=== PATIENT | female | born 1985 | race Two or more races ===

== ENCOUNTER → 2022-03-24 | Outpatient (CLI) | payer BC | END | disposition home or self-care (01) | LOC: LABWHC1 09:18 | DX: T78.40XA Allergy, unspecified, initial encounter (principal) | CPT/HCPCS: 36415 ==

== ENCOUNTER → 2022-06-25 | Outpatient (CLI) | payer BC ==
[2022-06-25 14:55] LABS: Basophils # (A) 0.04 X 10*3/uL (0.00-0.10); Basophils % (A) 0.6 %; Eosinophils # (A) 0.15 X 10*3/uL (0.04-0.35); Eosinophils % (A) 2.1 %; HCT 44.1 % (37.2-46.3); HGB 14.4 g/dL (12.0-15.0); Immature Grans, Automated 0.4 %; Lymphocytes # (A) 1.46 X 10*3/uL (0.90-5.00); Lymphocytes % (A) 20.1 %; MCH 29.6 pg (27.0-32.0); MCHC 32.7 g/dL (32.0-37.0); MCV 90.6 fL (80.0-97.0); Mean Platelet Volume 9.5 fL (9.5-12.2); Monocytes % (A) 8.3 %; NRBC Per 100 WBC 0 /100 WBCS (0.0-0.0); Neutrophils # (A) 4.99 X 10*3/uL (1.80-7.70); Neutrophils % (A) 68.5 %; Platelet Count 277 X 10*3/uL (140-440); RBC 4.87 X 10*6/uL (4.10-5.20); RDW 11.9 % (11.5-14.5); WBC 7.27 X 10*3/uL (4.50-10.00)
[2022-06-25 15:58] LABS: ALT 13 U/L (8-44); AST 12 U/L (13-35); HCG,Quantitative Serum <3.0 (0.0-6.0)
== END | disposition home or self-care (01) ==
LOC: LABWHC1 08:10
PROVIDERS: ATTEND Dermatology
DX: L70.0 Acne vulgaris (principal)
CPT/HCPCS: 36415; 82465; 84450; 84460; 84478; 84702; 85025

== ENCOUNTER → 2022-09-01 | Outpatient (CLI) | payer BC ==
[2022-09-02 11:15] LABS: APTT 42 Sec(s) (<43); Dilute Russell Viper Venom 37 Sec(s) (<44)
[2022-09-02 11:16] LABS: Anti-Thrombin III Antigen 87 % (80 - 120); Protein S Antigen 83 % (50 - 140)
== END | disposition home or self-care (01) ==
LOC: LABWHC1 08:06
DX: D68.2 Hereditary deficiency of other clotting factors (principal)
CPT/HCPCS: 36415; 81241; 83090; 85301; 85302; 85305; 85613; 85730

== ENCOUNTER → 2023-10-14 | Outpatient (CLI) | payer BC ==
--- NOTE | 2023-10-17 15:25 | MM ---
Reason for Exam: Screening (asymptomatic). Patient History: Menarche at age 11. First Full-Term at age 27. Mother had breast cancer, age 38. Risk Values: Jacklyn 5 year model risk: 1.0%. NCI Lifetime model risk: 18.9%. Staff Notes: BASELINE STUDY. Tissue Density: The breasts are heterogeneously dense, which may obscure small masses. Findings: Analyzed By CAD. Right breast: There is no suspicious group of microcalcifications or new suspicious mass. Left breast: There is no suspicious group of microcalcifications or new suspicious mass. Overall Assessment: Negative, BI-RAD 1 Management: Screening Mammogram of both breasts in [address] [facility] will attempt to contact patient to return for supplemental views and ultrasound if indicated. Patient should continue monthly self-breast exams. A clinical breast exam by your physician is recommended on an annual basis. This exam should not preclude additional follow-up of suspicious palpable abnormalities. Note on Jacklyn scores and lifetime risk: 1. A Jacklyn score greater than 3% is considered moderate risk. If this is the case, consider specialist referral to assess eligibility for a risk reducing agent. 2. If overall lifetime risk for the development of breast cancer is 20% or higher, the patient may qualify for future screening with alternating mammogram and breast MRI. Electronically signed and approved by: Sarath Sanchez DO
== END | disposition home or self-care (01) ==
LOC: RADMAMWWP 12:49
PROVIDERS: ATTEND Family Medicine
DX: Z12.31 Encounter for screening mammogram for malignant neoplasm of breast (principal); Z80.3 Family history of malignant neoplasm of breast
CPT/HCPCS: 77063; 77067

== ENCOUNTER → 2023-10-20 | Outpatient (CLI) | payer BC ==
[2023-10-20 14:22] LABS: Basophils # (A) 0.04 X 10*3/uL (0.00-0.10); Basophils % (A) 0.8 %; Eosinophils # (A) 0.09 X 10*3/uL (0.04-0.35); Eosinophils % (A) 1.8 %; HCT 41.3 % (37.2-46.3); HGB 13.3 g/dL (12.0-15.0); Lymphocytes # (A) 1.29 X 10*3/uL (0.90-5.00); Lymphocytes % (A) 25.4 %; MCH 27.6 pg (27.0-32.0); MCHC 32.2 g/dL (32.0-37.0); MCV 85.7 FL (80.0-97.0); Mean Platelet Volume 9.6 FL (9.5-12.2); Monocytes # (A) 0.39 X 10*3/uL (0.20-1.00); Monocytes % (A) 7.7 %; NRBC Per 100 WBC 0 X 10*3/uL (0.00-0.01); Neutrophils # (A) 3.26 X 10*3/uL (1.80-7.70); Neutrophils % (A) 64.1 %; Platelet Count 276 X 10*3/uL (140-440); RBC 4.82 X 10*6/uL (4.10-5.20); RDW 13.5 % (11.5-14.5); WBC 5.08 X 10*3/uL (4.50-10.00)
[2023-10-20 15:06] LABS: ALT 9 U/L (8-44); AST 18 U/L (13-35); Albumin 4.6 g/dL (3.8-4.9); Albumin/Globulin Ratio 1.77 Ratio (1.60-3.17); Alkaline Phosphatase 71 U/L (41-126); Blood Urea Nitrogen 11.7 mg/dL (9.0-27.0); Calcium 10.2 mg/dL (8.7-10.3); Carbon Dioxide 26.4 mmol/L (21.6-31.8); Chloride 102 mmol/L (96-109); Estradiol 47.6 pg/mL; Globulin 2.6 g/dL (1.6-3.3); Glucose 66 mg/dL (70-110); Potassium 4.6 mmol/L (3.5-5.5); Sodium 139 mmol/L (135-145); T4, Free (Free Thyroxine) 1.14 ng/dL (0.80-1.80); Total Bilirubin 0.3 mg/dL (0.3-1.2); Total Protein 7.2 g/dL (6.2-8.2)
[2023-10-20 16:05] LABS: Follicle Stimulating Hormone 7.6 mIU/mL; Luteinizing Hormone 6.1 mIU/mL
== END | disposition home or self-care (01) ==
LOC: LABWHC1 08:12
PROVIDERS: ATTEND Family Medicine
DX: F90.0 Attention-deficit hyperactivity disorder, predominantly inattentive type (principal); E06.3 Autoimmune thyroiditis; F33.1 Major depressive disorder, recurrent, moderate
CPT/HCPCS: 36415; 80053; 82670; 83001; 83002; 84439; 84443; 85025

== ENCOUNTER 2024-10-11 17:06 | Emergency (ER) | payer BC ==
--- NOTE | 2024-10-11 17:47 | ED ---
General Adult HPI - General Chief complaint: Headache Stated complaint: Headache Time Seen by Provider: 10/11/24 17:18 Source: patient Mode of arrival: ambulatory Limitations: no limitations - History of Present Illness Initial comments: Dictation was produced using [employer] dictation software. please excuse any grammatical, word or spelling errors. Chief Complaint: 39-year-old female with headache History of Present Illness: Patient is a 39-year-old female she does not have reported history of headaches. States she has family history of aneurysms. Around 2:30 PM today she started having a headache. States that she is sensitive to light and is throbbing in nature. Denies any significant comorbidities. Denies extremity issues. States that the headache is holoacranial. The ROS documented in this emergency department record has been reviewed and confirmed by me. Those systems with pertinent positive or negative responses have been documented in the HPI. All other systems are other negative and/or noncontributory. - Related Data Allergies Allergy/AdvReac Type Severity Reaction Status Date / Time No Known Allergies Allergy Verified 10/11/24 17:14 Review of Systems ROS Statement: Those systems with pertinent positive or pertinent negative responses have been documented in the HPI. ROS Other: All systems not noted in ROS Statement are negative. Past Medical History Additional Past Medical History / Comment(s): hashimotos History of Any Multi-Drug Resistant Organisms: None Reported Past Surgical History: No Surgical Hx Reported Past Psychological History: No Psychological Hx Reported Smoking Status: Never smoker Past Alcohol Use History: None Reported Past Drug Use History: None Reported General Exam - General Exam Comments Initial Comments: PHYSICAL EXAM: General Impression: Alert and oriented x3, acute distress the pain HEENT: Normocephalic atraumatic, extra-ocular movements intact, pupils equal and reactive to light bilaterally, mucous membranes moist. Cardiovascular: Heart regular rate and rhythm Chest: Able to complete full sentences, no retractions, no tachypnea Abdomen: abdomen soft, non-tender, non-distended, no organomegaly Musculoskeletal: Pulses present and equal in all extremities, no peripheral edema Motor: no focal deficits noted Neurological: CN II-XII grossly intact, no focal motor or sensory deficits noted Skin: Intact with no visualized rashes Psych: Normal affect and mood Limitations: no limitations Course Vital Signs 10/11/24 10/11/24 17:11 18:37 Temperature 97.8 F 97.7 F Pulse Rate 85 82 Respiratory 16 17 Rate Blood Pressure 119/81 125/83 O2 Sat by Pulse 100 100 Oximetry Medical Decision Making - Medical Decision Making Was pt. sent in by a medical professional or institution ([facility], CRATE BUILDER, urgent care, hospital, or intermediate...) When possible be specific @ -No Did you speak to anyone other than the patient for history (EMS, parent, family, police, friend...)? What history was obtained from this source @ -No Did you review nursing and triage notes (agree or disagree)? Why? @ -I reviewed and agree with nursing and triage notes Were old charts reviewed (outside hosp., previous admission, EMS record, old EKG, old radiological studies, urgent care reports/EKG's, intermediate records)? Report findings @ -No old charts were reviewed Differential Diagnosis (chest pain, altered mental status, abdominal pain women, abdominal pain men, vaginal bleeding, musculoskeletal, weakness, fever, dyspnea, syncope, headache, dizziness, GI bleed, back pain, seizure, CVA, palpatations, mental health)? @ -Differential Headache: Migraine, tension, cluster, carbon monoxide, central venous thrombosis, pension karma temporal arteritis, acute closure glaucoma, intercranial hemorrhage, mastoiditis, sinusitis, head injury, this is not meant to be an all-inclusive list. EKG interpreted by me (3pts min.). @ -None done X-rays interpreted by me (1pt min.). @ -None done CT interpreted by me (1pt min.). @ -CT brain and CT angiography head and neck shows no acute processes U/S interpreted by me (1pt. min.). @ -None done What testing was considered but not performed or refused? (CT, X-rays, U/S, labs)? Why? @ -None What meds were considered but not given or refused? Why? @ -None Was smoking cessation discussed for >3mins.? @ -No Were there social determinants of health that impacted care today? How? (Homelessness, low income, unemployed, alcoholism, drug addiction, transportation, low edu. Level, literacy, decrease access to med. care, long-term, rehab)? @ -No Was there de-escalation of care discussed even if they declined (Discuss DNR or withdrawal of care, Hospice)? DNR status @ -No What co-morbidities impacted this encounter? (DM, HTN, Smoking, COPD, CAD, Cancer, CVA, ARF, Chemo, Hep., AIDS, mental health diagnosis, sleep apnea, morbid obesity)? @ -Family history of brain aneurysms Was patient admitted / discharged? Hospital course, mention meds given and route, prescriptions, significant lab abnormalities, going to OR and other pertinent info. @ -39-year-old female presents to the emergency department with headache. She states that her symptoms did feel a thunderclap and that it is a severe headache. Vital signs stable. Patient in distress at the bedside. She has family history of intracranial aneurysms. CT imaging is negative. Patient presents within 6 hours of the onset of symptoms. No aneurysm seen on CTA. Patient given headache cocktail with improvement of symptoms. Patient reevaluated bedside found to be stable to condition. Patient discharged advised follow-up with primary care doctor. Clinical presentation consistent with migraine Did you discuss the management of the patient with other professionals (professionals i.e. , PA, CRATE BUILDER, lab, RT, psych nurse, psychiatric social worker, proofer apprentice, te acher, court collections officer, case hardener)? Give summary @ -No Was critical care preformed (if so, how long)? @ -No Undiagnosed new problem with uncertain prognosis? @ -No Drug Therapy requiring intensive monitoring for toxicity (Heparin, Nitro, Insulin, Cardizem)? @ -No Were any procedures done? @ -No Diagnosis/symptom? Acute, or Chronic, or Acute on Chronic? Uncomplicated (without systemic symptoms) or Complicated (systemic symptoms)? @ -Headache Side effects of treatment? @ -No Exacerbation, Progression, or Severe Exacerbation? @ -No Poses a threat to life or bodily function? How? (Chest pain, USA, NV, pneumonia, PE, COPD, DKA, ARF, appy, cholecystitis, CVA, Diverticulitis, Homicidal, Suicidal, threat to staff... and all critical care pts) @ -No - Lab Data Result diagrams: 10/11/24 17:55 10/11/24 17:55 Lab Results 10/11/24 10/11/24 Range/Units 17:55 17:55 WBC 6.89 (4.50-10.00) 10*3/uL RBC 4.77 (4.10-5.20) 10*6/uL Hgb 12.8 (12.0-15.0) g/dL Hct 39.2 (37.2-46.3) % MCV 82.2 (80.0-97.0) fL MCH 26.8 L (27.0-32.0) pg MCHC 32.7 (32.0-37.0) g/dL Plt Count 268 (140-440) 10*3/uL MPV 9.4 L (9.5-12.2) fL Immature Gran % (Auto) 0.3 % Neutrophils % 72.3 % Lymphocytes % 19.4 % Monocytes % 6.7 % Eosinophils % 0.9 % Basophils % 0.4 % Immature Gran # 0.02 (0.00-0.04) 10*3/uL Neutrophils # 4.98 (1.80-7.70) 10*3/uL Lymphocytes # 1.34 (0.90-5.00) 10*3/uL Monocytes # 0.46 (0.20-1.00) 10*3/uL Eosinophils # 0.06 (0.04-0.35) 10*3/uL Basophils # 0.03 (0.00-0.10) 10*3/uL Sodium 139 (137-145) mmol/L Potassium 3.9 (3.5-5.1) mmol/L Chloride 103 (98-107) mmol/L Carbon Dioxide 27 (22-30) mmol/L Anion Gap 9 mmol/L BUN 18 H (7-17) mg/dL Creatinine 0.79 (0.52-1.04) mg/dL Est GFR (CKD-EPI)AfAm >90 (>60 ml/min/1.73 sqM) Est GFR (CKD-EPI)NonAf >90 (>60 ml/min/1.73 sqM) Glucose 109 H (74-99) mg/dL Calcium 9.5 (8.4-10.2) mg/dL Disposition Clinical Impression: Headache Disposition: HOME SELF-CARE Condition: Good Instructions (If sedation given, give patient instructions): Acute Headache (ED) Is patient prescribed a controlled substance at d/c from ED?: No Referrals: Lionel Torres MD [Primary Care Provider] - 1-2 days Time of Disposition: 19:42
[2024-10-11 18:12] LABS: Basophils # (A) 0.03 10*3/uL (0.00-0.10); Basophils % (A) 0.4 %; Eosinophils # (A) 0.06 10*3/uL (0.04-0.35); Eosinophils % (A) 0.9 %; HCT 39.2 % (37.2-46.3); HGB 12.8 g/dL (12.0-15.0); Lymphocytes # (A) 1.34 10*3/uL (0.90-5.00); Lymphocytes % (A) 19.4 %; MCH 26.8 pg (27.0-32.0); MCHC 32.7 g/dL (32.0-37.0); MCV 82.2 fL (80.0-97.0); Mean Platelet Volume 9.4 fL (9.5-12.2); Monocytes # (A) 0.46 10*3/uL (0.20-1.00); Monocytes % (A) 6.7 %; Neutrophils # (A) 4.98 10*3/uL (1.80-7.70); Neutrophils % (A) 72.3 %; Platelet Count 268 10*3/uL (140-440); RBC 4.77 10*6/uL (4.10-5.20); RDW 16.7 % (11.5-14.5); WBC 6.89 10*3/uL (4.50-10.00)
[2024-10-11] MEDS: diphenhydrAMINE 50 MG/ML 1 ML VIAL IVP STA (18:23)
[2024-10-11] MEDS: ONDANSETRON 4 MG/2 ML VIAL IVP STA (18:24)
[2024-10-11] MEDS: SODIUM CHLORIDE 0.9% 1,000 ML IV STA (18:24)
[2024-10-11] MEDS: ACETAMINOPHEN IV (For NPO) 1,000 MG in EMPTY BAG 1 BAG IVPB STA (18:24)
[2024-10-11 18:40] LABS: African American GFR (CKD) >90 (>60 ml/min/1.73 sqM); Anion Gap 9 mmol/L; Blood Urea Nitrogen 18 mg/dL (7-17); Calcium 9.5 mg/dL (8.4-10.2); Carbon Dioxide 27 mmol/L (22-30); Chloride 103 mmol/L (98-107); Glucose 109 mg/dL (74-99); Non-African American GFR(CKD) >90 (>60 ml/min/1.73 sqM); Potassium 3.9 mmol/L (3.5-5.1); Sodium 139 mmol/L (137-145)
--- NOTE | 2024-10-11 18:54 | CT ---
EXAMINATION TYPE: CT brain wo con DATE OF EXAM: 10/11/2024 6:26 PM COMPARISON: None. CLINICAL INDICATION: Female, 39 years old with history of headache, Pt presents to ED for c/o head pr essure starting today with nausea and light sensitive. TECHNIQUE: CT of the brain is performed utilizing 3 mm thick sections through the posterior fossa and 3 mm thick sections through the remaining calvarium. Study is performed within 24 hours of arrival to the hospital. Contrast used: mL of , (none if empty) CT DLP: 1098 mGycm, Automated exposure control for dose reduction was used. FINDINGS: No abnormal hyperdensity is present to suggest an acute intracranial hemorrhage. No mass lesion is evident. No acute infarcts are evident. Ventricles and sulci are appropriate for the patient age. Paranasal sinuses and mastoid air cells within the [id number] are clear. IMPRESSION: 1. No acute intracranial process. Follow up MRI can be performed as clinically indicated. [facility], , 10/11/2024 6:52 PM
--- NOTE | 2024-10-11 19:11 | CT ---
EXAMINATION TYPE: CT angio head neck DATE OF EXAM: 10/11/2024 6:46 PM COMPARISON: None. CLINICAL INDICATION: Female, 39 years old with history of neurologic defecit, Pt presents to ED for c /o head pressure starting today with nausea and light sensitive. TECHNIQUE: CTA scan is performed with axial images are obtained, coronal and sagittal reformatted giuliano ges are reviewed. MIP images created on a separate workstation and submitted for review. 3-D reconstr ucted images are created on an independent workstation and reviewed. Source images are reviewed. GET CET criteria was used in interpretation of this exam? Contrast used:65ml mL of Isovue 370 with IV Contrast, (none if empty) Oral contrast used: (none if empty) CT DLP: 530.8 mGycm, Automated exposure control for dose reduction was used. FINDINGS: Carotid/Vascular Structures: There is a 3 vessel arch. Common carotid arteries bifurcate into internal and external carotid arteries without significant caridad w limiting stenosis. Vertebral arteries are codominant. Internal carotid arteries and vertebral arteries are patent to the skull base. Cervical of [place]: Vertebral basilar system appears normal. Posterior cerebral vasculature is unrema rkable. Internal carotid arteries bifurcate normally into A1 and M1 segments. The right A1 segment is hypoplastic. A2 segments are normal. The anterior communicating artery is patent. The right posterior communicating artery is patent. The left posterior communicating artery is absent. IMPRESSION: 1. No flow-limiting stenosis bilateral carotid bifurcations. 2. Normal [place] of [place]. [facility], , 10/11/2024 7:09 PM
[2024-10-11] MEDS: KETOROLAC 15 MG/ML 1 ML VIAL IVP STA (19:37)
[2024-10-11 19:58] VITALS: BP 99/62; PULSE 83; RESP 18; TEMP 97.9
== END 2024-10-11 19:58 | disposition home or self-care (01) ==
LOC: EC 17:06
DX: R51.9 Headache, unspecified (principal)
CPT/HCPCS: 99284; 96374; 96375 ×2; 96361; 36415; 80048; 85025; 70496; 70450; 70498; J1200; J0131; Q9967